=== PATIENT | female | born 1985 | race Caucasian/White ===

== ENCOUNTER → 2017-01-04 | Outpatient (CLI) | payer OTHER | LOC: MW.CHOBGYN 09:56 | PROVIDERS: ATTEND Obstetrics & Gynecology | DX: O02.0 Blighted ovum and nonhydatidiform mole (principal) | CPT/HCPCS: 36415; 84702 ==

== ENCOUNTER 2017-01-21 09:01 | Day surgery (SDC) | payer OTHER ==
[~2017-01-21 09:01] MED LIST: Dexamethasone 4 MG/ML 5 ML MDV ONE; Midazolam 1 MG/ML 2 ML SDV ONE; Ondansetron 4 MG/2 ML SDV ONE; Propofol 200 MG/20 ML SDV ONE; Sodium Chloride 0.9% 10 ML Syringe FLUSH PRN; Sodium Chloride 0.9% 2.5 ML Syringe FLUSH PRN; fentaNYL 100 MCG/2 ML SDV ONE
--- NOTE | 2017-01-21 09:29 | PCM.PREANE ---
Preanesthetic Assessment - Anesthesia/Transfusion/Family Hx Anesthesia History: Prior Anesthesia Without Reaction Family History of Anesthesia Reaction: No Transfusion History: No Prior Transfusion(s) Intubation History: Unknown - Review of Systems General: No Symptoms Pulmonary: No Symptoms Cardiovascular: No Symptoms Gastrointestinal: No symptoms Neurological: No Symptoms - Physical Assessment Height: 1.57 m Weight: 52.163 kg ASA Class: 1 Mental Status: Alert & Oriented x3 Airway Class: Mallampati = 2 Dentition: Reports: Normal Dentition Thyro-Mental Finger Breadths: 3 Mouth Opening Finger Breadths: 2 ROM/Head Extension: Full Lungs: Clear to auscultation, Normal respiratory effort Cardiovascular: Regular Rate, Regular Rhythm - Lab Values: Laboratory Last Values WBC 9.79 K/uL (4.0-11.0) 01/20/17 15:22 RBC 4.57 M/uL (4.30-5.90) 01/20/17 15:22 Hgb 13.2 g/dL (12.0-16.0) 01/20/17 15:22 Hct 39.0 % (36.0-46.0) 01/20/17 15:22 MCV 85.3 fL (80.0-98.0) 01/20/17 15:22 MCH 28.9 pg (27.0-32.0) 01/20/17 15:22 MCHC 33.8 g/dL (31.0-37.0) 01/20/17 15:22 RDW Std Deviation 42.6 fl (28.0-62.0) 01/20/17 15:22 RDW Coeff of Roberto Carlos 14 % (11.0-15.0) 01/20/17 15:22 Plt Count 321 K/uL (150-400) 01/20/17 15:22 MPV 10.30 fL (7.40-12.00) 01/20/17 15:22 Nucleated RBC % 0.0 /100WBC 01/20/17 15:22 Nucleated RBCs # 0 K/uL 01/20/17 15:22 Potassium 3.9 mmol/L (3.5-5.1) 01/20/17 15:22 Blood Type O POSITIVE 01/20/17 15:22 Antibody Screen NEGATIVE 01/20/17 15:22 - Allergies Allergies/Adverse Reactions: Allergies Allergy/AdvReac Type Severity Reaction Status Date / Time No Known Allergies Allergy Verified 01/20/17 16:02 - Blood Blood Available: No - Anesthesia Plan Pre-Op Medication Ordered: None - Acknowledgements Anesthesia Type Planned: General Anesthesia Pt an Appropriate Candidate for the Planned Anesthesia: Yes Alternatives and Risks of Anesthesia Discussed w Pt/Guardian: Yes Pt/Guardian Understands and Agrees with Anesthesia Plan: Yes PreAnesthesia Questionnaire Other HEENT History: wears glasses/contacts Cardiovascular History: Reports: None Respiratory History: Reports: None Gastrointestinal History: Reports: None Genitourinary History: Reports: None LEVERMAN History: Reports: None, Other (See Below) (blighted ovum) Musculoskeletal History: Reports: None Neurological History: Reports: None Psychiatric History: Reports: None Endocrine/Metabolic History: Reports: None Hematologic History: Reports: None Immunologic History: Reports: None Oncologic (Cancer) History: Reports: None Dermatologic History: Reports: None - Past Surgical History Head Surgeries/Procedures: Reports: None HEENT Surgical History: Reports: Oral Surgery Other HEENT Surgeries/Procedures: wisdom teeth Female Surgical History: Reports: None Musculoskeletal Surgical History: Reports: Other (See Below) Other Musculoskeletal Surgeries/Procedures:: hx of right ankle joint "clean out " - SUBSTANCE USE Smoking Status *Q: Never Smoker Recreational Drug Use History: No - HOME MEDS Home Medications: Home Meds . [No Known Home Meds] 01/20/17 [History] - CURRENT (IN HOUSE) MEDS Current Meds: Current Medications Sodium Chloride (Saline Flush) 10 ml FLUSH ASDIRECTED PRN PRN Reason: Keep Vein Open Sodium Chloride (Saline Flush) 2.5 ml FLUSH ASDIRECTED PRN PRN Reason: Keep Vein Open Discontinued Medications Dexamethasone (Dexamethasone) Confirm Administered Dose 20 mg .ROUTE .STK-MED ONE Stop: 01/21/17 07:42 Fentanyl (Sublimaze) Confirm Administered Dose 100 mcg .ROUTE .STK-MED ONE Stop: 01/21/17 07:41 Lidocaine HCl (Xylocaine-Mpf 1%) Confirm Administered Dose 5 ml .ROUTE .STK-MED ONE Stop: 01/21/17 07:42 Midazolam HCl (Versed 1 Mg/Ml) Confirm Administered Dose 2 mg .ROUTE .STK-MED ONE Stop: 01/21/17 07:41 Ondansetron HCl (Zofran) Confirm Administered Dose 4 mg .ROUTE .STK-MED ONE Stop: 01/21/17 07:42 Propofol (Diprivan 20 Ml) Confirm Administered Dose 200 mg .ROUTE .STK-MED ONE Stop: 01/21/17 07:41
[2017-01-21] MEDS ORDERED: Lactated Ringers 1,000 ML IV SCH (10:30)
[2017-01-21] MEDS ORDERED: Ketorolac 30 MG/ML SDV ONE (10:47)
[2017-01-21] MEDS ORDERED: fentaNYL 100 MCG/2 ML SDV IVPUSH PRN (10:50)
[2017-01-21] MEDS ORDERED: Methylergonovine 0.2 MG/1 ML Amp ONE (11:00)
[2017-01-21] MEDS ORDERED: Promethazine 25 MG/ML SDV IM PRN (11:08)
[2017-01-21] MEDS ORDERED: Morphine 2 MG/ML Syringe IVPUSH PRN (11:08)
[2017-01-21] MEDS ORDERED: Morphine 4 MG/ML Syringe IVPUSH PRN (11:08)
[2017-01-21] MEDS ORDERED: Ketorolac 30 MG/ML SDV IVPUSH PRN (11:08)
[2017-01-21] MEDS ORDERED: Ondansetron 4 MG/2 ML SDV IVPUSH PRN (11:08)
[2017-01-21] MEDS ORDERED: Acetaminophen/oxyCODONE 325-5 MG Tab PO PRN ×2 (11:08)
[2017-01-21] MEDS ORDERED: Ketorolac 30 MG/ML SDV IVPUSH ONE (11:11)
--- NOTE | 2017-01-21 11:11 | PCM.OPNOTE ---
- General Post-Op/Procedure Note Date of Surgery/Procedure: 01/21/17 Operative Procedure(s): D&E Pre Op Diagnosis: Glighted ovum Post-Op Diagnosis: Same Anesthesia Technique: General mask Primary Surgeon: Trae Valdez EBL in mLs: 200 Complications: None Condition: Good
--- NOTE | 2017-01-21 11:12 | PCM.DCSUM1 ---
Discharge Summary - Discharge Data Discharge Date: 01/21/17 Discharge Disposition: Home, Self-Care 01 Condition: Good - Patient Summary/Data Operative Procedure(s) Performed: D&E - Patient Instructions Diet: Usual Diet as Tolerated Activity: As Tolerated Driving: Do Not Drive Showering/Bathing: December Shower Notify Provider of: Fever, Increased Pain, Swelling and Redness, Drainage - Discharge Plan Home Medications: Home Meds . [No Known Home Meds] 01/20/17 [History] - General Info Date of Service: 01/21/17 Functional Status: Reports: pain controlled - Review of Systems General: Reports: No Symptoms HEENT: Reports: no symptoms Pulmonary: Reports: no symptoms Cardiovascular: Reports: No Symptoms Gastrointestinal: Reports: No symptoms Genitourinary: Reports: no symptoms Musculoskeletal: Reports: no symptoms Skin: Reports: no symptoms Neurological: Reports: No Symptoms Psychiatric: Reports: no symptoms - Patient Data Vitals - Most Recent: Last Vital Signs Temp 36.4 C 01/21/17 10:23 Pulse 70 01/21/17 10:23 Resp 16 01/21/17 10:23 BP 120/79 01/21/17 10:23 Pulse Ox 100 01/21/17 10:23 Weight - Most Recent: 52.163 kg Lab Results - Last 24 hrs: Laboratory Results - last 24 hr 01/20/17 01/20/17 01/20/17 Range/Units 15:22 15:22 15:22 WBC 9.79 (4.0-11.0) K/uL RBC 4.57 (4.30-5.90) M/uL Hgb 13.2 (12.0-16.0) g/dL Hct 39.0 (36.0-46.0) % MCV 85.3 (80.0-98.0) fL MCH 28.9 (27.0-32.0) pg MCHC 33.8 (31.0-37.0) g/dL RDW Std Deviation 42.6 (28.0-62.0) fl RDW Coeff of Roberto Carlos 14 (11.0-15.0) % Plt Count 321 (150-400) K/uL MPV 10.30 (7.40-12.00) fL Nucleated RBC % 0.0 /100WBC Nucleated RBCs # 0 K/uL Potassium 3.9 (3.5-5.1) mmol/L Blood Type O POSITIVE Antibody Screen NEGATIVE Med Orders - Current: Current Medications Fentanyl (Sublimaze) 50 mcg IVPUSH Q5M PRN PRN Reason: Pain (moderate 4-6) Stop: 01/21/17 12:30 Lactated Ringer's (Ringers, Lactated) 1,000 mls @ 100 mls/hr IV ASDIRECTED CALLUM Last Admin: 01/21/17 09:50 Dose: 100 mls/hr Ketorolac Tromethamine (Toradol) 30 mg IVPUSH ONETIME ONE Stop: 01/21/17 11:09 Ketorolac Tromethamine (Toradol) 30 mg IVPUSH Q6H PRN PRN Reason: Pain (severe 7-10) Stop: 01/26/17 11:08 Morphine Sulfate (Morphine) 2 mg IVPUSH Q2H PRN PRN Reason: Pain (severe 7-10) Morphine Sulfate (Morphine) 4 mg IVPUSH Q2H PRN PRN Reason: Pain (severe 7-10) Ondansetron HCl (Zofran) 4 mg IVPUSH Q6H PRN PRN Reason: Nausea/Vomiting Oxycodone/Acetaminophen (Percocet 325-5 Mg) 1 tab PO Q4H PRN PRN Reason: Pain (moderate 4-6) Oxycodone/Acetaminophen (Percocet 325-5 Mg) 2 tab PO Q4H PRN PRN Reason: Pain (moderate 4-6) Promethazine HCl (Phenergan) 25 mg IM Q6H PRN PRN Reason: Nausea/Vomiting Sodium Chloride (Saline Flush) 10 ml FLUSH ASDIRECTED PRN PRN Reason: Keep Vein Open Sodium Chloride (Saline Flush) 2.5 ml FLUSH ASDIRECTED PRN PRN Reason: Keep Vein Open Discontinued Medications Dexamethasone (Dexamethasone) Confirm Administered Dose 20 mg .ROUTE .STK-MED ONE Stop: 01/21/17 07:42 Fentanyl (Sublimaze) Confirm Administered Dose 100 mcg .ROUTE .STK-MED ONE Stop: 01/21/17 07:41 Ketorolac Tromethamine (Toradol) Confirm Administered Dose 30 mg .ROUTE .STK- MED ONE Stop: 01/21/17 10:48 Lidocaine HCl (Xylocaine-Mpf 1%) Confirm Administered Dose 5 ml .ROUTE .STK-MED ONE Stop: 01/21/17 07:42 Methylergonovine Maleate (Methergine) Confirm Administered Dose 0.2 mg .ROUTE .STK-MED ONE Stop: 01/21/17 11:01 Midazolam HCl (Versed 1 Mg/Ml) Confirm Administered Dose 2 mg .ROUTE .STK-MED ONE Stop: 01/21/17 07:41 Ondansetron HCl (Zofran) Confirm Administered Dose 4 mg .ROUTE .STK-MED ONE Stop: 01/21/17 07:42 Propofol (Diprivan 20 Ml) Confirm Administered Dose 200 mg .ROUTE .STK-MED ONE Stop: 01/21/17 07:41 - Exam General: Reports: alert, oriented HEENT: Reports: Pupils equal, Pupils reactive, EOMI, Mucous membr. moist/pink Neck: Reports: supple Lungs: Reports: Clear to auscultation, Normal respiratory effort Cardiovascular: Reports: Regular Rate, Regular Rhythm Abdomen: Reports: bowel sounds present, soft, no tenderness, no distension (Female) Exam: Normal External Exam, Normal Speculum Exam, Normal Bimanual Exam Rectal (Female) Exam: Normal Exam, Normal Rectal Tone Back Exam: Reports: Normal Inspection, Full Range of Motion Extremities: Reports: no edema, normal pulses Skin: Reports: warm, dry, intact Wound/Incisions: Reports: healing well Neurological: Reports: no new focal deficit Psy/Mental Status: Reports: alert, normal affect, normal mood *Q Meaningful Use (DIS) - VTE *Q VTE Criteria *Q: - Stroke *Q Stroke Criteria *Q: - AMI *Q AMI Criteria *Q:
--- NOTE | 2017-01-21 14:18 | OR ---
SURGEON: Trae Valdez MD DATE OF PROCEDURE: 01/21/2017 PREOPERATIVE DIAGNOSIS: Blighted ovum. POSTOPERATIVE DIAGNOSIS: Blighted ovum. OPERATION PERFORMED: Dilatation and evacuation. RETAINING ROOM CUTTER: OR tech. ANESTHESIA: General mask, per Dr. Williamson. ESTIMATED BLOOD LOSS: 200 mL. COMPLICATIONS: None. FINDINGS: Product of conception. This patient has confirmed blighted ovum by repeated ultrasound. PROCEDURE IN DETAIL: The patient was brought to the OR, properly identified. After adequate level of anesthesia, the patient was placed in lithotomy position. Prepped and draped in sterile fashion as usual. The cervix was sequentially dilated to accommodate #7 cannula. The cannula was placed in the endometrial cavity and the endometrial cavity suction curettage was completely from all product of conception and blood passed of that. Gentle curetting is done with a small metal curette and another run with a #7 vacuum curetting, and it was felt that the uterus was empty and the product of conception was removed. The patient lost about 200 mL of blood, so I gave her IM Methergine in the OR. Instrument and sponge count was correct. The patient tolerated the procedure well, went to recovery room in stable general condition. ISMAEL / EMILY /[id number]
[2017-01-21 14:23] VITALS: BP 115/65
== END 2017-01-21 12:40 | disposition home or self-care (01) ==
LOC: MW.SDS 09:01
PROVIDERS: ATTEND Obstetrics & Gynecology
DX: O02.0 Blighted ovum and nonhydatidiform mole (principal); Z98.890 Other specified postprocedural states; Z79.899 Other long term (current) drug therapy
CPT/HCPCS: 36415; 59820; 84132; 85027; 86850; 86900; 86901; J1100; J2210; J2250; J2405; J3010; J7120; 01965; 88305; J1885; J2704

== ENCOUNTER 2017-05-06 08:54 | Day surgery (SDC) | payer OTHER ==
[~2017-05-06 08:54] MED LIST changes: -Dexamethasone 4 MG/ML 5 ML MDV ONE; +Lactated Ringers 1,000 ML IV SCH; -Midazolam 1 MG/ML 2 ML SDV ONE; -Ondansetron 4 MG/2 ML SDV ONE; -Propofol 200 MG/20 ML SDV ONE; -fentaNYL 100 MCG/2 ML SDV ONE
[2017-05-06 10:02] LABS: CHLORIDE,CL 107 mmol/L (98-110); SODIUM,NA 139 mmol/L (136-146)
--- NOTE | 2017-05-06 10:57 | PCM.PREANE ---
Preanesthetic Assessment - Anesthesia/Transfusion/Family Hx Anesthesia History: Prior Anesthesia Without Reaction Family History of Anesthesia Reaction: No Transfusion History: No Prior Transfusion(s) Intubation History: Unknown - Review of Systems General: No Symptoms Pulmonary: No Symptoms Cardiovascular: No Symptoms Gastrointestinal: No Symptoms Neurological: No Symptoms Other: Reports: None - Physical Assessment NPO Status Date: 05/05/17 NPO Status Time: 22:00 O2 Sat by Pulse Oximetry: 100 Respiratory Rate: 16 Vital Signs: Last Vital Signs Temp 36.4 C 05/06/17 09:00 Pulse 67 05/06/17 09:00 Resp 16 05/06/17 09:00 BP 101/73 05/06/17 09:00 Pulse Ox 100 05/06/17 09:00 Height: 1.57 m Weight: 52.163 kg ASA Class: 1 Mental Status: Alert & Oriented x3 Airway Class: Mallampati = 1 Dentition: Reports: Normal Dentition Thyro-Mental Finger Breadths: 3 Mouth Opening Finger Breadths: 2 ROM/Head Extension: Full Lungs: Clear to Auscultation, Normal Respiratory Effort Cardiovascular: Regular Rate, Regular Rhythm - Lab Values: Laboratory Last Values WBC 6.92 K/uL (4.0-11.0) 05/06/17 09:25 RBC 4.97 M/uL (4.30-5.90) 05/06/17 09:25 Hgb 14.2 g/dL (12.0-16.0) 05/06/17 09:25 Hct 42.4 % (36.0-46.0) 05/06/17 09:25 MCV 85.3 fL (80.0-98.0) 05/06/17 09:25 MCH 28.6 pg (27.0-32.0) 05/06/17 09:25 MCHC 33.5 g/dL (31.0-37.0) 05/06/17 09:25 RDW Std Deviation 42.0 fl (28.0-62.0) 05/06/17 09:25 RDW Coeff of Roberto Carlos 14 % (11.0-15.0) 05/06/17 09:25 Plt Count 299 K/uL (150-400) 05/06/17 09:25 MPV 10.40 fL (7.40-12.00) 05/06/17 09:25 Nucleated RBC % 0.0 /100WBC 05/06/17 09:25 Nucleated RBCs # 0 K/uL 05/06/17 09:25 Sodium 139 mmol/L (136-146) 05/06/17 09:25 Potassium 4.0 mmol/L (3.5-5.1) 05/06/17 09:25 Chloride 107 mmol/L (98-110) 05/06/17 09:25 Carbon Dioxide 24 mmol/L (21-31) 05/06/17 09:25 BUN 13 mg/dL (6.0-23.0) 05/06/17 09:25 Creatinine 0.9 mg/dL (0.6-1.5) 05/06/17 09:25 Est Cr Clr Drug Dosing 70.98 mL/min 05/06/17 09:25 Estimated GFR (MDRD) > 60.0 ml/min 05/06/17 09:25 Glucose 91 mg/dL (60-110) 05/06/17 09:25 Calcium 9.5 mg/dL (8.8-10.8) 05/06/17 09:25 HCG, Quant 271.2 mIU/mL 05/06/17 09:25 Blood Type O POSITIVE 05/06/17 09:25 Antibody Screen NEGATIVE 05/06/17 09:25 - Allergies Allergies/Adverse Reactions: Allergies Allergy/AdvReac Type Severity Reaction Status Date / Time No Known Allergies Allergy Verified 01/20/17 16:02 - Blood Blood Available: No - Anesthesia Plan Pre-Op Medication Ordered: None - Acknowledgements Anesthesia Type Planned: General Anesthesia Pt an Appropriate Candidate for the Planned Anesthesia: Yes Alternatives and Risks of Anesthesia Discussed w Pt/Guardian: Yes Pt/Guardian Understands and Agrees with Anesthesia Plan: Yes PreAnesthesia Questionnaire HEENT History: Reports: Other (See Below) Other HEENT History: wears glasses/contacts Cardiovascular History: Reports: None Respiratory History: Reports: None Gastrointestinal History: Reports: None Genitourinary History: Reports: None CYANIDE POT TENDER History: Reports: Spontaneous Musculoskeletal History: Reports: None Neurological History: Reports: None Psychiatric History: Reports: None Endocrine/Metabolic History: Reports: None Hematologic History: Reports: None Immunologic History: Reports: None Oncologic (Cancer) History: Reports: None Dermatologic History: Reports: None - Past Surgical History Head Surgeries/Procedures: Reports: None HEENT Surgical History: Reports: Oral Surgery Other HEENT Surgeries/Procedures: wisdom teeth Female Surgical History: Reports: Dilitation & Evacuation (01/30) Musculoskeletal Surgical History: Reports: Other (See Below) Other Musculoskeletal Surgeries/Procedures:: hx of right ankle joint "clean out " - SUBSTANCE USE Smoking Status *Q: Never Smoker Recreational Drug Use History: No - HOME MEDS Home Medications: Home Meds Aspirin [Ector Aspirin] 81 mg PO DAILY 05/03/17 [History] PNV95/Ferrous Fumarate/FA [ Vitamins Tablet] 1 tab PO DAILY 05/03/17 [ History] - CURRENT (IN HOUSE) MEDS Current Meds: Current Medications Lactated Ringer's (Ringers, Lactated) 1,000 mls @ 125 mls/hr IV ASDIRECTED CALLUM Last Admin: 05/06/17 09:25 Dose: 125 mls/hr Sodium Chloride (Saline Flush) 10 ml FLUSH ASDIRECTED PRN PRN Reason: Keep Vein Open Sodium Chloride (Saline Flush) 2.5 ml FLUSH ASDIRECTED PRN PRN Reason: Keep Vein Open
[2017-05-06] MEDS ORDERED: Propofol 200 MG/20 ML SDV ONE (11:10)
[2017-05-06] MEDS ORDERED: fentaNYL 100 MCG/2 ML SDV ONE (11:11)
[2017-05-06] MEDS ORDERED: Ondansetron 4 MG/2 ML SDV ONE (11:11)
[2017-05-06] MEDS ORDERED: Lidocaine 2% 5 ML SDV ONE (11:11)
[2017-05-06] MEDS ORDERED: Midazolam 1 MG/ML 2 ML SDV ONE (11:11)
[2017-05-06] MEDS ORDERED: Ketorolac 30 MG/ML SDV ONE (12:58)
[2017-05-06] MEDS ORDERED: Methylergonovine 0.2 MG/1 ML Amp ONE (13:12)
[2017-05-06] MEDS ORDERED: fentaNYL 100 MCG/2 ML SDV IVPUSH PRN (13:16)
[2017-05-06] MEDS ORDERED: Acetaminophen/oxyCODONE 325-5 MG Tab PO PRN ×2 (13:23)
[2017-05-06] MEDS ORDERED: Promethazine 25 MG/ML SDV IM PRN (13:23)
[2017-05-06] MEDS ORDERED: Ketorolac 30 MG/ML SDV IVPUSH PRN (13:23)
[2017-05-06] MEDS ORDERED: Morphine 2 MG/ML Syringe IVPUSH PRN (13:23)
[2017-05-06] MEDS ORDERED: Ondansetron 4 MG/2 ML SDV IVPUSH PRN (13:23)
[2017-05-06] MEDS ORDERED: Morphine 4 MG/ML Syringe IVPUSH PRN (13:23)
[2017-05-06] MEDS ORDERED: Ketorolac 30 MG/ML SDV IVPUSH ONE (13:23)
--- NOTE | 2017-05-06 13:27 | PCM.DCSUM1 ---
Discharge Summary - Discharge Data Discharge Date: 05/06/17 Discharge Disposition: Home, Self-Care 01 Condition: Good - Patient Summary/Data Operative Procedure(s) Performed: Hystroscopy DC - Patient Instructions Diet: Usual Diet as Tolerated Activity: As Tolerated Driving: Do Not Drive Showering/Bathing: May Shower Notify Provider of: Fever, Increased Pain - Discharge Plan Home Medications: Home Meds Aspirin [Casa Aspirin] 81 mg PO DAILY 05/03/17 [History] PNV95/Ferrous Fumarate/FA [ Vitamins Tablet] 1 tab PO DAILY 05/03/17 [ History] - General Info Date of Service: 05/06/17 Functional Status: Reports: Pain Controlled - Review of Systems General: Reports: No Symptoms HEENT: Reports: No Symptoms Pulmonary: Reports: No Symptoms Cardiovascular: Reports: No Symptoms Gastrointestinal: Reports: No Symptoms Genitourinary: Reports: No Symptoms Musculoskeletal: Reports: No Symptoms Skin: Reports: No Symptoms Neurological: Reports: No Symptoms Psychiatric: Reports: No Symptoms - Patient Data Vitals - Most Recent: Last Vital Signs Temp 36.4 C 05/06/17 09:00 Pulse 67 05/06/17 09:00 Resp 16 05/06/17 10:57 BP 101/73 05/06/17 09:00 Pulse Ox 100 05/06/17 10:57 Weight - Most Recent: 52.163 kg Lab Results - Last 24 hrs: Laboratory Results - last 24 hr 05/06/17 05/06/17 05/06/17 Range/Units 09:25 09:25 09:25 WBC 6.92 (4.0-11.0) K/uL RBC 4.97 (4.30-5.90) M/uL Hgb 14.2 (12.0-16.0) g/dL Hct 42.4 (36.0-46.0) % MCV 85.3 (80.0-98.0) fL MCH 28.6 (27.0-32.0) pg MCHC 33.5 (31.0-37.0) g/dL RDW Std Deviation 42.0 (28.0-62.0) fl RDW Coeff of Roberto Carlos 14 (11.0-15.0) % Plt Count 299 (150-400) K/uL MPV 10.40 (7.40-12.00) fL Nucleated RBC % 0.0 /100WBC Nucleated RBCs # 0 K/uL Sodium 139 (136-146) mmol/L Potassium 4.0 (3.5-5.1) mmol/L Chloride 107 (98-110) mmol/L Carbon Dioxide 24 (21-31) mmol/L BUN 13 (6.0-23.0) mg/dL Creatinine 0.9 (0.6-1.5) mg/dL Est Cr Clr Drug Dosing 70.98 mL/min Estimated GFR (MDRD) > 60.0 ml/min Glucose 91 (60-110) mg/dL Calcium 9.5 (8.8-10.8) mg/dL HCG, Quant mIU/mL Blood Type O POSITIVE Antibody Screen NEGATIVE 05/06/17 Range/Units 09:25 WBC (4.0-11.0) K/uL RBC (4.30-5.90) M/uL Hgb (12.0-16.0) g/dL Hct (36.0-46.0) % MCV (80.0-98.0) fL MCH (27.0-32.0) pg MCHC (31.0-37.0) g/dL RDW Std Deviation (28.0-62.0) fl RDW Coeff of Roberto Carlos (11.0-15.0) % Plt Count (150-400) K/uL MPV (7.40-12.00) fL Nucleated RBC % /100WBC Nucleated RBCs # K/uL Sodium (136-146) mmol/L Potassium (3.5-5.1) mmol/L Chloride (98-110) mmol/L Carbon Dioxide (21-31) mmol/L BUN (6.0-23.0) mg/dL Creatinine (0.6-1.5) mg/dL Est Cr Clr Drug Dosing mL/min Estimated GFR (MDRD) ml/min Glucose (60-110) mg/dL Calcium (8.8-10.8) mg/dL HCG, Quant 271.2 mIU/mL Blood Type Antibody Screen Med Orders - Current: Current Medications Fentanyl (Sublimaze) 50 mcg IVPUSH .Q5MIN PRN PRN Reason: Pain Lactated Ringer's (Ringers, Lactated) 1,000 mls @ 125 mls/hr IV ASDIRECTED CALLUM Last Admin: 05/06/17 09:25 Dose: 125 mls/hr Ketorolac Tromethamine (Toradol) 30 mg IVPUSH ONETIME ONE Stop: 05/06/17 13:24 Ketorolac Tromethamine (Toradol) 30 mg IVPUSH Q6H PRN PRN Reason: Pain (severe 7-10) Stop: 05/11/17 13:23 Morphine Sulfate (Morphine) 2 mg IVPUSH Q2H PRN PRN Reason: Pain (severe 7-10) Morphine Sulfate (Morphine) 4 mg IVPUSH Q2H PRN PRN Reason: Pain (severe 7-10) Ondansetron HCl (Zofran) 4 mg IVPUSH Q6H PRN PRN Reason: Nausea/Vomiting Oxycodone/Acetaminophen (Percocet 325-5 Mg) 1 tab PO Q4H PRN PRN Reason: Pain (moderate 4-6) Oxycodone/Acetaminophen (Percocet 325-5 Mg) 2 tab PO Q4H PRN PRN Reason: Pain (moderate 4-6) Promethazine HCl (Phenergan) 25 mg IM Q6H PRN PRN Reason: Nausea/Vomiting Sodium Chloride (Saline Flush) 10 ml FLUSH ASDIRECTED PRN PRN Reason: Keep Vein Open Sodium Chloride (Saline Flush) 2.5 ml FLUSH ASDIRECTED PRN PRN Reason: Keep Vein Open Discontinued Medications Fentanyl (Sublimaze) Confirm Administered Dose 100 mcg .ROUTE .STK-MED ONE Stop: 05/06/17 11:12 Ketorolac Tromethamine (Toradol) Confirm Administered Dose 30 mg .ROUTE .STK- MED ONE Stop: 05/06/17 12:59 Lidocaine (Xylocaine-Mpf 2%) Confirm Administered Dose 5 ml .ROUTE .STK-MED ONE Stop: 05/06/17 11:12 Methylergonovine Maleate (Methergine) Confirm Administered Dose 0.2 mg .ROUTE .STK-MED ONE Stop: 05/06/17 13:13 Midazolam HCl (Versed 1 Mg/Ml) Confirm Administered Dose 2 mg .ROUTE .STK-MED ONE Stop: 05/06/17 11:12 Ondansetron HCl (Zofran) Confirm Administered Dose 4 mg .ROUTE .STK-MED ONE Stop: 05/06/17 11:12 Propofol (Diprivan 20 Ml) Confirm Administered Dose 200 mg .ROUTE .STK-MED ONE Stop: 05/06/17 11:11 - Exam General: Reports: Alert, Oriented HEENT: Reports: Pupils Equal, Pupils Reactive, EOMI, Mucous Membr. Moist/[place] Neck: Reports: Supple Lungs: Reports: Clear to Auscultation, Normal Respiratory Effort Cardiovascular: Reports: Regular Rate, Regular Rhythm GI/Abdominal Exam: Normal Bowel Sounds, Soft, Non-Tender, No Organomegaly, No Distention, No Abnormal Bruit, No Mass, Pelvis Stable (Female) Exam: Normal External Exam, Normal Speculum Exam, Normal Bimanual Exam Rectal (Female) Exam: Normal Exam, Normal Rectal Tone Back Exam: Reports: Normal Inspection, Full Range of Motion Extremities: Normal Inspection, Normal Range of Motion, Non-Tender, No Pedal Edema, Normal Capillary Refill Skin: Reports: Warm, Dry, Intact Wound/Incisions: Reports: Healing Well Neurological: Reports: No New Focal Deficit Psy/Mental Status: Reports: Alert, Normal Affect, Normal Mood *Q Meaningful Use (DIS) - VTE *Q VTE Criteria *Q: - Stroke *Q Stroke Criteria *Q: - AMI *Q AMI Criteria *Q:
--- NOTE | 2017-05-06 13:27 | PCM.OPNOTE ---
- General Post-Op/Procedure Note Date of Surgery/Procedure: 05/06/17 Operative Procedure(s): Hystroscopy DC Findings: POC Pre Op Diagnosis: Blighted ovum Post-Op Diagnosis: Same Primary Surgeon: Trae Valdez Management Accountant: Barbara Darden EBL in mLs: 300 Complications: None Condition: Good
--- NOTE | 2017-05-06 13:47 | PCM.POSTAN ---
POST ANESTHESIA ASSESSMENT - MENTAL STATUS Mental Status: Alert, Oriented - RESPIRATORY Respiratory Status: Respiratory Rate WNL - CARDIOVASCULAR CV Status: Pulse Rate WNL, Blood Pressure Stable - GASTROINTESTINAL GI Status: No Symptoms - PAIN Pain Score: 1 - POST OP HYDRATION Hydration Status: Adequate & Stable - OBSERVATIONS Free Text/Narrative:: no anesthesia problems
[2017-05-06 15:14] VITALS: BP 102/71
--- NOTE | 2017-05-06 20:19 | OR ---
SURGEON: Trae Valdez MD DATE OF PROCEDURE: PREOPERATIVE DIAGNOSIS: Blighted ovum, possible retained products of conception. POSTOPERATIVE DIAGNOSIS: Blighted ovum, possible retained products of conception. OPERATION PERFORMED: Hysteroscopy, D and C. BATTERY VENT PLUG INSERTER: FRANCISCO JAVIER Acosta. ANESTHESIA: General, Esther Radford and Dr. Williamson. ESTIMATED BLOOD LOSS: 300 mL. COMPLICATIONS: None. FINDINGS: Probably old products of conception versus fibroid uterus and scarring and this product is removed and curetting of the uterus is performed. INDICATIONS FOR SURGERY: Refer to the admit note. PROCEDURE IN DETAIL: The patient was brought to the OR, properly identified and after adequate level of anesthesia, the patient placed in lithotomy position, prepped and draped in sterile fashion as usual. Straight catheter was used to empty the bladder, and then the cervix was grasped with single-tooth tenaculum and sequentially dilated to accommodate the hysteroscope. The hysteroscope was placed and normal saline was used as distention solution and the uterus had quite a bit of scarring from probably her previous D and C, and there was an area what looked like either a fibroid versus old products of conception. It is on the right posterior side of the uterus and extended to the posterior wall. I went ahead and did D and C, and I removed this mass and with the possibility of the products of conception. Once this was done, re-hysteroscopy was done and there was evidence that the uterus was reasonably clear from all the scarring, so at this time, I gave the patient Methergine and procedure ended. Instrument, sponge count was correct. The patient tolerated the procedure well, went to recovery room in stable general condition. ISMAEL / EMILY /[id number]
== END 2017-05-06 14:55 | disposition home or self-care (01) ==
LOC: MW.SDS 08:54
PROVIDERS: ATTEND Obstetrics & Gynecology
DX: O43.899 Other placental disorders, unspecified trimester (principal); Z98.890 Other specified postprocedural states; Z79.82 Long term (current) use of aspirin; Z79.899 Other long term (current) drug therapy
CPT/HCPCS: 36415; 58558; 80048; 84702; 85027; 86850; 86900; 86901; J2210; J2250; J2405; J3010; J7120; 00952; 88305; J1885; J2704